=== PATIENT | female | born 1950 | race Caucasian/White ===

== ENCOUNTER 2023-06-22 07:56 | Day surgery (SDC) | payer MEDICARE ==
[~2023-06-22 07:56] MED LIST: Propofol 200 MG/20 ML SDV ONE; fentaNYL 50 MCG/ML SDV ONE
[2023-06-22] MEDS ORDERED: Lactated Ringers 1,000 ML IV SCH (08:30)
[2023-06-22 08:32] LABS: BASOPHILS ABSOLUTE AUTO 0.03 K/uL (0.00-0.10); BASOPHILS PERCENT AUTO 0.6 % (0.1-1.3); EOSINOPHILS ABSOLUTE AUTO 0.11 K/uL (0.00-0.40); EOSINOPHILS PERCENT AUTO 2.1 % (0.0-5.4); HEMATOCRIT 41.4 % (34.3-46.0); HEMOGLOBIN 13.8 g/dL (11.2-15.5); IMMATURE GRAN PERCENT AUTO 0.4 % (0.0-0.7); LYMPHOCYTES ABSOLUTE AUTO 1.31 K/uL (0.8-3.3); MEAN CORPUSCULAR HEMOGLOBIN 31.3 pg (31.6-35.5); MEAN CORPUSCULAR HGB CONC 33.3 g/dL (31.6-35.5); MEAN CORPUSCULAR VOLUME 93.9 fL (81.4-99.0); MONOCYTES ABSOLUTE AUTO 0.53 K/uL (0.20-0.90); MONOCYTES PERCENT AUTO 10.1 % (3.3-12.6); NEUTROPHILS ABSOLUTE AUTO 3.24 K/uL (1.0-7.6); NEUTROPHILS PERCENT AUTO 61.8 % (40.0-78.1); PLATELET COUNT,PLT 232 K/uL (130-375); RED BLOOD CELL COUNT 4.41 M/uL (3.77-5.24); WHITE BLOOD CELL COUNT,WBC 5.2 K/uL (3.2-11.0)
[2023-06-22 08:36] LABS: IMMATURE GRAN ABSOLUTE AUTO 0.02 K/uL (0.00-0.23)
[2023-06-22 08:51] LABS: A/G RATIO 1.2 (1.2-2.2); ALANINE AMINOTRANSFERASE,ALT 29 U/L (12-78); ALBUMIN 3.7 g/dL (3.4-5.0); ALKALINE PHOSPHATASE 78 U/L (46-116); ASPARTATE AMNIOTRANSFERASE,AST 25 U/L (15-37); BILIRUBIN TOTAL 0.8 mg/dL (0.2-1.0); BLOOD UREA NITROGEN,BUN 11 mg/dL (7-18); CALCIUM 8.9 mg/dL (8.5-10.1); CARBON DIOXIDE,CO2 28 mmol/L (21-32); CHLORIDE,CL 104 mmol/L (100-108); CREATININE 1.1 mg/dL (0.6-1.0); EST CRCL DRUG DOSING (CG) 31.74 mL/min; ESTIMATED GFR 52 mL/min (>60); GLUCOSE RANDOM 83 mg/dL (74-106); MAGNESIUM 1.9 mg/dL (1.8-2.4); PHOSPHORUS 3.4 mg/dL (2.5-4.9); POTASSIUM,K 4.1 mmol/L (3.6-5.2); PROTEIN TOTAL,TP 6.7 g/dL (6.4-8.2); SODIUM,NA 138 mmol/L (140-148)
[2023-06-22 08:56] LABS: ANION GAP 10.1 mmol/L (5.0-14.0)
[2023-06-22 10:37] VITALS: BP 138/65; PULSE 57
== END 2023-06-22 10:55 | disposition home or self-care (01) ==
LOC: JP.SDS 07:56
PROVIDERS: ATTEND Student in an Organized Health Care Education/Training Program
DX: Z12.11 Encounter for screening for malignant neoplasm of colon (principal); K57.30 Diverticulosis of large intestine without perforation or abscess without bleeding; K63.5 Polyp of colon; D12.4 Benign neoplasm of descending colon; I10 Essential (primary) hypertension; Z88.0 Allergy status to penicillin
CPT/HCPCS: 36415; 45380; 80053; 83735; 84100; 85025; J2704; J3010; J7120

== ENCOUNTER 2024-02-17 06:18 | Day surgery (SDC) | payer MEDICARE ==
[2024-02-17] MEDS: Nozin Nasal Sanitizer NASBOTH ONE (06:43)
[2024-02-17] MEDS: Lactated Ringers 1,000 ML IV SCH (06:43)
[2024-02-17 06:45] LABS: HEMATOCRIT 39.6 % (34.3-46.0); HEMOGLOBIN 13.5 g/dL (11.2-15.5); MEAN CORPUSCULAR HEMOGLOBIN 31.6 pg (31.6-35.5); MEAN CORPUSCULAR HGB CONC 34.1 g/dL (31.6-35.5); MEAN CORPUSCULAR VOLUME 92.7 fL (81.4-99.0); RED BLOOD CELL COUNT 4.27 M/uL (3.77-5.24); WHITE BLOOD CELL COUNT,WBC 7.6 K/uL (3.2-11.0)
[2024-02-17 07:00] LABS: ANION GAP 4.7 mmol/L (5.0-14.0); CALCIUM 9.6 mg/dL (8.5-10.1); CREATININE 1.1 mg/dL (0.6-1.0); EST CRCL DRUG DOSING (CG) 31.74 mL/min; POTASSIUM,K 4.4 mmol/L (3.6-5.2)
[2024-02-17] MEDS ORDERED: Propofol 200 MG/20 ML SDV ONE (07:00)
[2024-02-17] MEDS ORDERED: Midazolam 1 MG/ML 2 ML SDV ONE (07:00)
[2024-02-17] MEDS ORDERED: fentaNYL 100 MCG/2 ML SDV ONE (07:00)
[2024-02-17] MEDS: ceFAZolin 1 GM in Premix Bag 1 BAG IV ONE (07:45)
[2024-02-17] MEDS: Bupivacaine 0.5% 30 ML SDV ONE (07:55)
[2024-02-17 09:32] VITALS: BP 141/75; PULSE 56
== END 2024-02-17 10:11 | disposition home or self-care (01) ==
LOC: JP.SDS 06:18
PROVIDERS: ATTEND Specialist
DX: M67.442 Ganglion, left hand (principal); I10 Essential (primary) hypertension; E78.5 Hyperlipidemia, unspecified; E66.9 Obesity, unspecified; Z79.899 Other long term (current) drug therapy; Z88.5 Allergy status to narcotic agent
CPT/HCPCS: 01810-QZ; 36415; 80048; 85027; A9270-GY; J0665; J0689; J2250; J2704; J3010; J7120

== ENCOUNTER 2024-03-10 06:22 | Day surgery (SDC) | payer MEDICARE ==
[2024-03-10] MEDS ORDERED: fentaNYL 250 MCG/5 ML SDV ONE (06:47)
[2024-03-10] MEDS ORDERED: Dexamethasone 4 MG/ML SDV ONE (06:51)
[2024-03-10] MEDS ORDERED: Rocuronium 50 MG/5 ML Vial ONE (06:51)
[2024-03-10] MEDS ORDERED: Glycopyrrolate 0.2 MG/ML 5 ML MDV ONE (06:51)
[2024-03-10] MEDS ORDERED: Succinylcholine 200 MG/10 ML MDV ONE (06:51)
[2024-03-10] MEDS ORDERED: Ondansetron 4 MG/2 ML SDV ONE (06:51)
[2024-03-10] MEDS ORDERED: Neostigmine Methylsulfate 10 MG/10 ML MDV ONE (06:51)
[2024-03-10] MEDS ORDERED: Propofol 200 MG/20 ML SDV ONE (06:51)
[2024-03-10] MEDS: Sodium Chloride 0.9% 1,000 ML IV SCH (07:09)
[2024-03-10] MEDS: Indocyanine Green 25 MG SDV IV ONE (07:10)
[2024-03-10] MEDS: metroNIDAZOLE/Normal Saline 500 MG in Premix Bag 1 BAG IV ONE (07:27)
[2024-03-10] MEDS: ceFAZolin 2 GM in Premix Bag 1 BAG IV ONE (08:00)
[2024-03-10] MEDS: Bupivacaine 0.5% 50 ML MDV ONE (08:13)
[2024-03-10] MEDS: Lidocaine 1% with EPINEPHrine 1:100,000 50 ML MDV ONE (08:15)
[2024-03-10] MEDS: Ropivacaine 30 ML, dexAMETHasone 8 MG, EPINEPHrine 0.4 MG, Sodium Chloride 0.9% 47.6 ML NERVRT SCH (08:16)
[2024-03-10] MEDS ORDERED: fentaNYL 100 MCG/2 ML SDV ONE (08:44)
[2024-03-10] MEDS: oxyCODONE 5 MG Tab PO ONE (10:36)
[2024-03-10] MEDS: Scopalamine 1mg/3day Transdermal Patch TOP SCH (10:55)
[2024-03-10] MEDS: Ondansetron 4 MG/2 ML SDV IVPUSH ONE (11:34)
[2024-03-10 13:37] VITALS: PULSE 69
[2024-03-10 14:05] VITALS: BP 135/76
== END 2024-03-10 15:03 | disposition home or self-care (01) ==
LOC: JP.SDS 06:22
PROVIDERS: ATTEND Surgery
DX: K81.1 Chronic cholecystitis (principal); I10 Essential (primary) hypertension
CPT/HCPCS: 47563; 88304; A9270; J0171; J0330; J0665; J0690; J1100; J1596; J1836; J2405; J2704; J2710; J2795; J3010; J3490; J7030; 00790-QZ

== ENCOUNTER 2024-08-22 05:56 | Day surgery (SDC) | payer MEDICARE ==
[2024-08-22 06:18] LABS: HEMATOCRIT 42.1 % (34.3-46.0); HEMOGLOBIN 14.3 g/dL (11.2-15.5); MEAN CORPUSCULAR HEMOGLOBIN 32.1 pg (31.6-35.5); MEAN CORPUSCULAR VOLUME 94.6 fL (81.4-99.0); RED BLOOD CELL COUNT 4.45 M/uL (3.77-5.24); WHITE BLOOD CELL COUNT,WBC 7.6 K/uL (3.2-11.0)
[2024-08-22 06:38] LABS: ANION GAP 7.1 mmol/L (5.0-14.0); BLOOD UREA NITROGEN,BUN 15 mg/dL (7-18); CARBON DIOXIDE,CO2 30 mmol/L (21-32); CHLORIDE,CL 107 mmol/L (100-108); EST CRCL DRUG DOSING (CG) 34.38 mL/min; ESTIMATED GFR 58 mL/min (>60); GLUCOSE RANDOM 82 mg/dL (74-106); POTASSIUM,K 4.1 mmol/L (3.6-5.2); SODIUM,NA 144 mmol/L (140-148)
[2024-08-22 06:39] LABS: A/G RATIO 1.4 (1.2-2.2); ALANINE AMINOTRANSFERASE,ALT 24 U/L (12-78); ALBUMIN 3.9 g/dL (3.4-5.0); ALKALINE PHOSPHATASE 79 U/L (46-116); ASPARTATE AMNIOTRANSFERASE,AST 17 U/L (15-37); BILIRUBIN TOTAL 0.6 mg/dL (0.2-1.0); CALCIUM 9.5 mg/dL (8.5-10.1); PROTEIN TOTAL,TP 6.7 g/dL (6.4-8.2)
[2024-08-22] MEDS: Nozin Nasal Sanitizer NASBOTH ONE (06:41)
[2024-08-22] MEDS: Lactated Ringers 1,000 ML IV SCH (06:47)
[2024-08-22] MEDS ORDERED: Midazolam 1 MG/ML 2 ML SDV ONE (07:03)
[2024-08-22] MEDS ORDERED: Propofol 200 MG/20 ML SDV ONE (07:03)
[2024-08-22] MEDS ORDERED: fentaNYL 100 MCG/2 ML SDV ONE (07:03)
[2024-08-22] MEDS: ceFAZolin 1 GM in Premix Bag 1 BAG IV ONE (07:50)
[2024-08-22] MEDS: Bupivacaine 0.5% 30 ML SDV ONE (08:00)
[2024-08-22 10:32] VITALS: BP 152/88; PULSE 62
== END 2024-08-22 10:30 | disposition home or self-care (01) ==
LOC: JP.SDS 05:56
PROVIDERS: ATTEND Specialist
DX: M25.842 Other specified joint disorders, left hand (principal); I10 Essential (primary) hypertension; Z88.5 Allergy status to narcotic agent
CPT/HCPCS: 26160; 36415; 80053; 85027; 93005; 93010; A9270; J0665; J0689; J2250; J2704; J3010; J7120; 01810-QZ